=== PATIENT | female | born 1990 | race African-American/Black ===

== ENCOUNTER 2018-11-17 03:23 | Inpatient (IN) | payer OTHER ==
[2018-11-17] MEDS ORDERED: Lactated Ringers 1000 ML Bag* 1,000 ML IV ONE ×2 (03:56→04:40)
[2018-11-17] MEDS ORDERED: Buffered Lidocaine 1% SYRIN* 1 ML/SYRINGE INTRADERM ONE (03:56)
[2018-11-17] MEDS ORDERED: Lactated Ringers 1000 ML Bag* 1,000 ML IV SCH ×3 (04:00→06:00)
[2018-11-17] MEDS ORDERED: OBEPIDURAL* 250 ML EPIDURAL ONE (04:06)
--- NOTE | 2018-11-17 04:09 | HP ---
General Information - Reason for Visit labor check - General Information Maternal Age: 28 Grav: 3 Para: 1 SAB: 0 IEA: 1 Estimated Due Date: 11/24/18 Determined By: Early Ultrasound Gestational Age in Weeks/Days: 39w 0 d Maternal Blood Type and Rh: A Positive - Results this Serology/RPR Result: Non-Reactive Rubella Result: Immune HBsAg Result: Negative HIV Result: Negative GBS Culture Result: Negative Past Medical History Delivery History: Hx Uncomplicated Vaginal Delivery Past Medical History Comment: kidney stones Depression/anxiety--on Gabapentin Pertinent Past Surgical History: None Pertinent Family History: See Records - Antepartal Records Antepartal Records: Reviewed, Complicated by: - marijuana use Review of Systems Constitutional: Uncomfortable CV Complaint: No Respiratory: Shortness of Breath: No Gastrointestinal: No Nausea/Vomiting Musculoskeletal: Contractions Neurological: No Headache Movement: Normal Exam Allergies/Adverse Reactions: Allergies MS Acetaminophen [From Tylenol] Allergy (Verified 11/17/18 03:40) GI Upset MS Ibuprofen [Ibuprofen] Allergy (Verified 11/17/18 03:40) GI Upset - Measurements Height: 5 ft 4 in Weight: 153 lb Weight in lbs: 153.387644 Body Mass Index (BMI): 26.2 Pre- Weight: 120 lb Weight Gained This : 33 lbs and 0 ozs - Exam Breast: - - soft, no masses Extremities: No Edema Heart: Normal Rhythm/Heart Sounds HEENT: No Significant Findings Lungs: Clear Bilaterally Reflexes: - - unable to elicit Thyroid: No Thyromegaly - Abdominal Exam Abdomen Exam: Non-Tender - Ultrasound/Biophysical Profile Ultrasound Status: Bedside Exam - vertex Targeted Exam Findings Estimated Weight: 6 lbs Cervical Exam: 6cm Effacement: 80% Station: -2 Presenting Part: Vertex Membrane Status: Intact EFM Findings - External Monitor Findings Baseline Heart Rate: 135 External Monitor Findings: Accelerations Present, No Pattern of Variable or Late Decelerations, Variability Moderate, Baseline Stable External Monitor Findings Comment: category 1 Contractions: Regular, Strong, 45-90 Seconds Contraction Frequency: every 2-3 min Assessment/Plan - Assessment at 39 wks in active labor - Obstetrical Risk Factors Obstetrical Risk Factors: Tobacco Use, Psychosocial Issues - Plan Plan: Admit - Anticipate Vaginal Delivery Plan Comment: wants epidural - Date/Time of Admission Date of Admission: 11/17/18 Time of Admission: 03:30
[2018-11-17] MEDS ORDERED: Bupivacaine 0.25% SDV PF* 10 ML VIAL INJ ONE (04:12)
[2018-11-17 04:22] LABS: ABS Basophils 0 10^3/ul (0-0.2); ABS Eosinophils 0.1 10^3/ul (0-0.6); ABS Lymphocytes 1.9 10^3/ul (1.0-4.8); ABS Monocytes 1.4 10^3/ul (0-0.8); ABS Neutrophils 10.9 10^3/ul (1.5-7.7); ABS Nucleated RBC 0 10^3/ul; Eosinophil % 0.9 %; Hematocrit 39 % (33-41); Hemoglobin 12.8 g/dL (12.0-16.0); Lymphocyte % 13.5 %; Mean Corpuscular HGB Conc 33 g/dL (31-36); Mean Corpuscular Hemoglobin 31 pg (27-31); Mean Corpuscular Volume 93 fL (80-97); Nucleated Red Blood Cells % 0; Platelet Count 201 10^3/uL (150-450); Red Blood Count 4.17 10^6 /uL (3.70-4.87); Red Cell Distribution Width 15 % (10.5-15); White Blood Count 14.4 10^3/uL (3.5-10.8)
[2018-11-17] MEDS ORDERED: Sodium Citrate/Citric Acid* 15 ML UDC PO PRN (04:40)
[2018-11-17] MEDS ORDERED: Phenylephrine 40 MCG/ML SYRINGE IV PUSH PRN (04:40)
[2018-11-17] MEDS ORDERED: Famotidine TAB* 20 MG PO PRN (04:40)
[2018-11-17] MEDS ORDERED: EPHEDrine (Pressors)* 50 MG/ML VIAL IV PUSH PRN (04:40)
[2018-11-17] MEDS ORDERED: OBEPIDURAL* 250 ML EPIDURAL SCH (05:00)
--- NOTE | 2018-11-17 05:30 | PN ---
Progress Note - Progress Note Date of Service: 11/17/18 Note: comfortable after epidural SROM, mec stained fluid Early decels to 90, good recovery 9cm, 90,-1
[2018-11-17] MEDS ORDERED: Oxytocin in LR* 20 UNITS/1,000 ML BAG IVPB ONE (05:40)
[2018-11-17] MEDS ORDERED: Witch Hazel PAD* JAR TOPICAL PRN (05:59)
[2018-11-17] MEDS ORDERED: Oxytocin in LR* 20 UNITS/1,000 ML BAG IVPB SCH (06:00)
[2018-11-17 06:10] LABS: Barbiturates Urine Screen None Detected (None Detect); Benzodiazepine Urine Screen None Detected (None Detect); Urine Cannabinoids Screen None Detected (None Detect)
--- NOTE | 2018-11-17 06:10 | PROCNOTE ---
[facility] OB: Delivery Note - Delivery A Date of : 11/17/18 Time of : 05:36 [place] Sex: Female Score 1 Minute: 9 Score 5 Minutes: 9 Gestational Age in Weeks and Days at Delivery: 39 Weeks and 0 Days Delivery Method: Spontaneous Vaginal Labor: Spontaneous Did Patient attempt ?: N/A, No Previous Amniotic Fluid: Meconium Estimated Blood Loss: 200 Anesthesia/Analgesia: CEI for Labor Anesthesia Comment: Dr. Wilkins Delivered By: Lima Nunes - Nursery Level of Nursery: Regular/Bedside - Perineum Perineal Injury: None/Intact - Events Delivery Events of Note: Pitocin Only After Delivery - Additional Delivery Notes Additional Delivery Notes: SVB LFC, OA, over intact perineum after 4 minute second stage. Infant pink with stimulation, bulb suctioning. Placenta [place]. FF with massage, IV with pitocin running. EBL 200cc. Mother and baby in good condition
[2018-11-17] MEDS: Docusate CAP* 100 MG PO SCH ×3 (09:00→21:17)
[2018-11-17] MEDS: Gabapentin CAP(*) 100 MG PO SCH ×2 (10:00→21:17)
[2018-11-17] MEDS ORDERED: Nicotine Inhaler* 10 MG AMP INH PRN (10:20)
[2018-11-17] MEDS: Acetaminophen TAB* 325 MG PO PRN (19:03)
[2018-11-17] MEDS ORDERED: Mouth Piece, Nicotine* 1 EACH CARTRIDGE ONE (19:43)
[2018-11-18 06:44] LABS: Hematocrit 37 % (33-41); Hemoglobin 12.4 g/dL (12.0-16.0); Mean Corpuscular HGB Conc 34 g/dL (31-36); Mean Corpuscular Hemoglobin 31 pg (27-31); Mean Corpuscular Volume 93 fL (80-97); Mean Platelet Volume 9.3 fL (7.4-10.4); Platelet Count 187 10^3/uL (150-450); Red Blood Count 3.99 10^6 /uL (3.70-4.87); Red Cell Distribution Width 15 % (10.5-15); White Blood Count 10.3 10^3/uL (3.5-10.8)
[2018-11-18 08:44] VITALS: BP 134/74
[2018-11-18] MEDS ORDERED: Ferrous Gluconate TAB* 324 MG TAB PO SCH (09:00)
[2018-11-18] MEDS: Acetaminophen TAB* 325 MG PO PRN (09:22)
[2018-11-18] MEDS: Docusate CAP* 100 MG PO SCH (09:22)
[2018-11-18] MEDS: Gabapentin CAP(*) 100 MG PO SCH (09:22)
[2018-11-18] MEDS ORDERED: Phenylephrine 40 MCG/ML SYRINGE ONE (14:18)
== END 2018-11-18 13:00 | disposition home or self-care (01) | DRG 560 ==
LOC: MCHOBOUT 03:23 → MCHOB 03:31
PROVIDERS: ADMIT Midwife; ATTEND Midwife
PROC: 10E0XZZ Delivery of Products of Conception, External Approach (ICD-10-PCS; principal; 2018-11-17)
PROC: 4A1HXCZ Monitoring of Products of Conception, Cardiac Rate, External Approach (ICD-10-PCS; 2018-11-17)
DX: O99.334 Smoking (tobacco) complicating childbirth (principal); Z37.0 Single live birth; O99.344 Other mental disorders complicating childbirth; F32.9 Major depressive disorder, single episode, unspecified; F41.9 Anxiety disorder, unspecified; O76 Abnormality in fetal heart rate and rhythm complicating labor and delivery; O77.0 Labor and delivery complicated by meconium in amniotic fluid; Z3A.39 39 weeks gestation of pregnancy; Z88.5 Allergy status to narcotic agent
CPT/HCPCS: 36415; 80307; 85025; 85027; 86850; 86900; 86901; A9270-GY; J3490

== ENCOUNTER 2018-12-01 23:29 | Emergency (ER) | payer OTHER ==
[2018-12-02 01:40] LABS: ABS Basophils 0 10^3/ul (0-0.2); ABS Eosinophils 0.2 10^3/ul (0-0.6); ABS Lymphocytes 2.8 10^3/ul (1.0-4.8); ABS Monocytes 0.5 10^3/ul (0-0.8); ABS Neutrophils 3.2 10^3/ul (1.5-7.7); ABS Nucleated RBC 0 10^3/ul; Eosinophil % 3.5 %; Hematocrit 43 % (33-41); Hemoglobin 14.3 g/dL (12.0-16.0); Lymphocyte % 40.9 %; Mean Corpuscular HGB Conc 33 g/dL (31-36); Mean Corpuscular Hemoglobin 31 pg (27-31); Mean Corpuscular Volume 92 fL (80-97); Nucleated Red Blood Cells % 0.1; Platelet Count 293 10^3/uL (150-450); Red Blood Count 4.65 10^6 /uL (3.70-4.87); Red Cell Distribution Width 15 % (10.5-15); White Blood Count 6.8 10^3/uL (3.5-10.8)
[2018-12-02 01:57] LABS: Albumin 3.9 g/dL (3.2-5.2); Albumin/Globulin Ratio 1.3 (1-3); BUN/Creatinine Ratio 21.3 (8-20); EGFR African American 102.6 (>60); EGFR Non-African American 84.8 (>60); Globulin 3.1 g/dL (2-4); Potassium 3.8 mmol/L (3.5-5.0); Total Bilirubin 0.3 mg/dL (0.2-1.0)
--- NOTE | 2018-12-02 02:59 | ED ---
Upper Extremity Pain - HPI Summary HPI Summary: The patient is a 28 y/o F presenting to [facility] with a chief complaint of sharp sudden onset numbness and tingling in the bilateral fingertips and hands that radiates to the arms starting two days after giving on November 17. The pain , which is rated 8/10 in severity, is aggravated by putting pressure on the hands like in prayer position. The pain is also worse in the morning rather than throughout the day. She denies CP. Vaginal delivery of baby at 39 weeks was normal without complications other than some abnormal iron levels. - History of Current Complaint Chief Complaint: EDHypertension Stated Complaint: "LEFT ARM PAIN/HEADACHE" Time Seen by Provider: 12/02/18 02:52 Hx Obtained From: Patient Hx Last Menstrual Period: 5 weeks ago Mechanism Of Injury: Unknown Onset/Duration: Started Days Ago - about two weeks, Still Present Timing: Lasting Days Severity Initially: Moderate Severity Currently: Moderate Pain Location: Other: - pain, numbness, and tingling starts in the fingertips of both hands, moves into the palms, and up both arms Character: Sharp Aggravating Factor(s): Other - pressure on hands Alleviating Factor(s): Nothing Associated Signs & Symptoms: Positive: Numbness/Tingling - in hands and arms. Negative: Chest Pain - Allergies/Home Medications Allergies/Adverse Reactions: Allergies Allergy/AdvReac Type Severity Reaction Status Date / Time acetaminophen [From Tylenol] Allergy Vomiting Verified 12/02/18 03:25 PMH/Surg Hx/FS Hx/Imm Hx Endocrine/Hematology History: Denies: Hx Anticoagulant Therapy, Hx Diabetes, Hx Thyroid Disease Cardiovascular History: Denies: Hx Hypertension Respiratory History: Denies: Hx Asthma, Hx Chronic Obstructive Pulmonary Disease (COPD) GI History: Reports: Hx Ulcer Psychiatric History: Reports: Hx Anxiety, Hx Depression, Hx Community Mental Health Tx - Receives MH T[facility] through [facility], Hx Substance Abuse Denies: Hx Attention Deficit Hyperactivity Disorder, Hx Eating Disorder, Hx Panic Disorder, Hx Post Traumatic Stress Disorder, Hx Schizophrenia, Hx Bipolar Disorder, Hx Suicide Attempt, Hx of Violent Episodes Against Others - Surgical History Surgery Procedure, Year, and Place: none Infectious Disease History: No Infectious Disease History: Denies: Hx Clostridium Difficile, Hx Hepatitis, Hx Human Immunodeficiency Virus (HIV), Hx of Known/Suspected MRSA, Hx Shingles, Hx Tuberculosis, Hx Known/ Suspected VRE, Hx Known/Suspected VRSA, History Other Infectious Disease, Traveled Outside the [place] in Last 30 Days - Family History Known Family History: Positive: Hypertension - Social History Alcohol Use: Occasionally Hx Substance Use: No Substance Use Type: Reports: Cocaine, Marijuana Substance Use Comment - Amount & Last Used: Pt reports using marijuana 2 weeks ago;reports being drugged with cocaine Hx Tobacco Use: No Smoking Status (MU): Light Every Day Tobacco Smoker Type: Cigarettes Review of Systems Positive: other - NEGATIVE: abnormal bleeding Positive: Other - NEGATIVE: neck pain Positive: Numbness - and tingling in bilateral hands and radiating into the arms All Other Systems Reviewed And Are Negative: Yes Physical Exam - Summary Physical Exam Summary: Appearance: Well-appearing, Well-nourished, lying in bed comfortable Skin: Warm, dry, no obvious rash Eyes: sclera anicteric, no conjunctival pallor ENT: mucous membranes moist Neck: deferred Respiratory: No signs of respiratory distress Cardiovascular: Appears well perfused, pulses are nml Abdomen: deferred Musculoskeletal: Moving all 4 extremities without obvious discomfort except as noted, symptoms are reproduced by hyperextending the wrists, No muscular atrophy , No sensory deficits, No motor deficits in hand or writs Neurological: Awake and alert, mentation is normal, speech is fluent and appropriate Psychiatric: affect is normal, does not appear anxious or depressed Triage Information Reviewed: Yes Vital Signs On Initial Exam: Initial Vitals Temp Pulse Resp BP Pulse Ox 98.8 F 65 18 160/106 100 12/01/18 23:32 12/01/18 23:32 12/01/18 23:32 12/01/18 23:32 12/01/18 23:32 Vital Signs Reviewed: Yes Diagnostics - Vital Signs Vital Signs Temp Pulse Resp BP Pulse Ox 12/01/18 23:32 98.8 F 65 18 160/106 100 - Laboratory Lab Results: Lab Results 12/02/18 12/02/18 12/02/18 Range/Units 01:34 01:34 01:34 WBC 6.8 (3.5-10.8) 10^3/uL RBC 4.65 (3.70-4.87) 10^6 /uL Hgb 14.3 (12.0-16.0) g/dL Hct 43 H (33-41) % MCV 92 (80-97) fL MCH 31 (27-31) pg MCHC 33 (31-36) g/dL RDW 15 (10.5-15) % Plt Count 293 (150-450) 10^3/uL MPV 8.0 (7.4-10.4) fL Neut % (Auto) 47.3 % Lymph % (Auto) 40.9 % Porter % (Auto) 8.1 % Eos % (Auto) 3.5 % Baso % (Auto) 0.2 % Absolute Neuts (auto) 3.2 (1.5-7.7) 10^3/ul Absolute Lymphs (auto) 2.8 (1.0-4.8) 10^3/ul Absolute Monos (auto) 0.5 (0-0.8) 10^3/ul Absolute Eos (auto) 0.2 (0-0.6) 10^3/ul Absolute Basos (auto) 0 (0-0.2) 10^3/ul Absolute Nucleated RBC 0 10^3/ul Nucleated RBC % 0.1 Sodium 136 (135-145) mmol/L Potassium 3.8 (3.5-5.0) mmol/L Chloride 105 (101-111) mmol/L Carbon Dioxide 26 (22-32) mmol/L Anion Gap 5 (2-11) mmol/L BUN 17 (6-24) mg/dL Creatinine 0.80 (0.51-0.95) mg/dL Est GFR ( Amer) 102.6 (>60) Est GFR (Non-Af Amer) 84.8 (>60) BUN/Creatinine Ratio 21.3 H (8-20) Glucose 115 H (70-100) mg/dL Lactic Acid 1.2 (0.5-2.0) mmol/L Calcium 9.0 (8.6-10.3) mg/dL Total Bilirubin 0.30 (0.2-1.0) mg/dL AST 17 (13-39) U/L ALT 14 (7-52) U/L Alkaline Phosphatase 76 (34-104) U/L Total Protein 7.0 (6.4-8.9) g/dL Albumin 3.9 (3.2-5.2) g/dL Globulin 3.1 (2-4) g/dL Albumin/Globulin Ratio 1.3 (1-3) Result Diagrams: 12/02/18 01:34 12/02/18 01:34 Lab Statement: Any lab studies that have been ordered have been reviewed, and results considered in the medical decision making process. - EKG 2346 Cardiac Rate: NL - 53 BPM EKG Rhythm: Sinus Rhythm Summary of EKG Findings: NSR at 61 BPM, P waves, QRS complex, and T waves are within normal limits, T waves and intervals are normal, no ischemic changes. This is a normal EKG. Course/Dx - Course Course Of Treatment: The patient is a 28 y/o F with a chief complaint of sharp sudden onset numbness and tingling in the bilateral fingertips and hands that radiates to the arms starting two days after giving on November 17. Normal delivery of baby with only complication of iron levels. Upon physical exam, symptoms are reproduced by hyperextending the wrists, there is no muscular atrophy, no sensory deficits, no motor deficits in the hands or wrists. Blood work reveals elevated hct, BUN/Creatinine ratio, and glucose. EKG reveals NSR. She is diagnosed with paresthesia and Carpal Tunnel. She will be discharged home with instructions for using wrist splints and follow up with PCP as needed. We discussed her condition as related to her recent . She agrees with this plan and understands the need for return to the ED for any new or worsening symptoms. - Diagnoses Provider Diagnoses: Carpal tunnel syndrome, Paresthesias Discharge - Sign-Out/Discharge Documenting (check all that apply): Patient Departure - Patient will be discharged home. Patient Received Moderate/Deep Sedation with Procedure: No - Discharge Plan Condition: Good Disposition: HOME Patient Education Materials: Paresthesia (ED) Referrals: Merritt Gandhi MD [Medical Doctor] - Additional Instructions: Use the wrist splints at night, this should help with your symptoms. If the problem does not seem to be resolving on its own over the next few weeks, or it' s getting worse, make an appt with the orthopedic surgeon. There are other treatments for this condition if basic conservative measures fail. - Billing Disposition and Condition Condition: GOOD Disposition: Home - Attestation Statements Document Initiated by Scribe: Yes Documenting Scribe: Clover Argueta Provider For Whom Scribe is Documenting (Include Credential): Dr. Wilmer Vasquez MD Scribe Attestation: IClover, scribed for Dr. Wilmer Vasquez MD on 12/03/18 at 0535. Scribe Documentation Reviewed: Yes Provider Attestation: The documentation as recorded by the Clover kong accurately reflects the service I personally performed and the decisions made by me, Dr. Wilmer Vasquez MD Status of Scrbharathi Document: Viewed
[2018-12-02 03:18] VITALS: BP 135/92
== END 2018-12-02 03:17 | disposition home or self-care (01) ==
LOC: ED 23:29
DX: G56.02 Carpal tunnel syndrome, left upper limb (principal); R20.0 Anesthesia of skin; F17.210 Nicotine dependence, cigarettes, uncomplicated; F41.9 Anxiety disorder, unspecified
CPT/HCPCS: 36415; 80053; 83605; 85025; 85379; 93005; 99283

== ENCOUNTER 2023-05-23 15:23 | Inpatient (IN) ==
[2023-05-23] MEDS ORDERED: Lactated Ringers 1000 ml BAG 1,000 ML IV ONE ×3 (15:33→17:25)
[2023-05-23 16:16] LABS: ABS Lymphocytes 0.8 10^3/uL (1.0-4.8); ABS Neutrophils 8.8 10^3/uL (1.5-7.6); ABS Nucleated RBC 0.01 10^3/ul; Hematocrit 44.4 % (35-45); Hemoglobin 14.9 g/dL (11.5-14.3); Lymphocyte % 7.3 %; Mean Corpuscular Hemoglobin 31.2 pg (27-33); Mean Corpuscular Hgb Conc 33.6 g/dL (31-36); Mean Corpuscular Volume 92.9 fL (80-97); Mean Platelet Volume 7.5 fL (7.5-11.2); Nucleated Red Blood Cells % 0.1 /100 WBC (0.0-0.4); Platelet Count 263 10^3/uL (150-450); Red Blood Count 4.77 10^6/uL (3.63-4.92); Red Cell Distribution Width 14.2 % (12-17); White Blood Count 10.6 10^3/uL (3.8-11.8)
[2023-05-23 16:17] LABS: Urine Appearance Cloudy; Urine Bilirubin Negative (Negative); Urine Blood 3+ (Negative); Urine Color Yellow; Urine Glucose 1+(50 mg/dL) (Negative); Urine Ketones Negative (Negative); Urine Nitrite Negative (Negative); Urine Protein 2+(100 mg/dL) (Negative); Urine Specific Gravity 1.013 (1.002-1.030); Urine Urobilinogen Negative (Negative)
[2023-05-23 16:19] LABS: Urine Bacteria Absent (Absent); Urine Red Blood Cell 1+(3-5/hpf) (Absent); Urine Squamous Epithelial Cell Present (Absent); Urine White Blood Cell Trace(0-5/hpf) (Absent)
[2023-05-23 16:27] LABS: INR 1.15 (0.83-1.13)
[2023-05-23 16:37] LABS: Albumin 4.8 g/dL (3.2-5.2); Anion Gap 9 mmol/L (2-16); CO2 Carbon Dioxide 26 mmol/L (22-32); Calcium 8.8 mg/dL (8.6-10.3); Chloride 101 mmol/L (101-111); Magnesium 2.3 mg/dL (1.9-2.7); Potassium 5.4 mmol/L (3.5-5.0); Sodium 136 mmol/L (135-145)
[2023-05-23 16:43] LABS: ALT 77 U/L (7-52); AST 155 U/L (13-39); Albumin/Globulin Ratio 1.6 (1-3); Alkaline Phosphatase 61 U/L (35-149); Blood Urea Nitrogen 28 mg/dL (6-24); Creatinine, Serum 1.39 mg/dL (0.51-0.95); Glucose 115 mg/dL (70-100); Total Protein 7.8 g/dL (6.4-8.9); eGFR CKD-EPI 51.4 (>60)
[2023-05-23 16:47] LABS: HCG Pregnancy < 0.60 mIU/mL; High Sens Troponin Baseline 57 pg/mL (<15)
[2023-05-23 16:51] LABS: Acetaminophen < 15 mcg/mL; Alcohol, S < 13 mg/dL (<13); Salicylate < 2.50 mg/dL (<30)
[2023-05-23] MEDS ORDERED: Iodixanol (CONTRAST) 320 MG/ML 100 ML SDV IV ONE (16:55)
[2023-05-23 17:02] LABS: Creatine Kinase 14107 U/L (10-223)
[2023-05-23 17:19] LABS: Urine Benzodiazepine Screen None Detected (None Detect); Urine Cannabinoids Screen Presumptive Positive (None Detect); Urine Opiates Screen None Detected (None Detect)
[2023-05-23 17:21] LABS: Venous Bicarbonate HCO3 22.9 mmol/L (24-28)
[2023-05-23 17:44] LABS: High Sensitivity Troponin 1 Hr 79 pg/mL (<15)
[2023-05-23] MEDS ORDERED: Lactated Ringers 1000 ml BAG 1,000 ML IV SCH (20:00)
[2023-05-23] MEDS ORDERED: Ondansetron 4 mg VIAL 2 MG/ML 2 ml VIAL IV PRN (21:05)
[2023-05-23] MEDS: Enoxaparin 40 MG/0.4 ML SYR SUBCUT SCH (21:22)
[2023-05-23 21:31] LABS: Urine Appearance Clear; Urine Bilirubin Negative (Negative); Urine Blood 3+ (Negative); Urine Color Yellow; Urine Glucose 1+(50 mg/dL) (Negative); Urine Ketones Negative (Negative); Urine Nitrite Negative (Negative); Urine Protein 2+(100 mg/dL) (Negative); Urine Specific Gravity 1.013 (1.002-1.030); Urine Urobilinogen Negative (Negative)
[2023-05-23 21:38] LABS: Urine Bacteria Absent (Absent); Urine Red Blood Cell Trace(0-2/hpf) (Absent); Urine Squamous Epithelial Cell Present (Absent); Urine White Blood Cell Trace(0-5/hpf) (Absent)
[2023-05-23 22:01] LABS: Urine Benzodiazepine Screen None Detected (None Detect); Urine Buprenorphine Screen None Detected (None Detect); Urine Cannabinoids Screen Presumptive Positive (None Detect); Urine Fentanyl Screen Presumptive Positive (None Detect); Urine Hydrocodone Screen None Detected (None Detect); Urine Opiates Screen None Detected (None Detect)
[2023-05-24] MEDS: Acetaminophen IV 1 GM/100ML 1,000 MG/100 ML BAG IV PRN ×2 (02:30→13:51)
[2023-05-24] MEDS: Neomycin/Polym/Bacit TOP OINT 15 GM TOPICAL SCH ×3 (02:31→21:45)
[2023-05-24 05:11] LABS: Hematocrit 42.9 % (35-45); Hemoglobin 14.7 g/dL (11.5-14.3); Mean Corpuscular Hemoglobin 30.8 pg (27-33); Mean Corpuscular Hgb Conc 34.2 g/dL (31-36); Mean Corpuscular Volume 90.1 fL (80-97); Mean Platelet Volume 7.4 fL (7.5-11.2); Platelet Count 254 10^3/uL (150-450); Red Blood Count 4.76 10^6/uL (3.63-4.92); Red Cell Distribution Width 13.9 % (12-17); White Blood Count 9.7 10^3/uL (3.8-11.8)
[2023-05-24 05:28] LABS: Calcium 8.4 mg/dL (8.6-10.3); Creatinine, Serum 0.81 mg/dL (0.51-0.95); Magnesium 1.9 mg/dL (1.9-2.7); Potassium 4.2 mmol/L (3.5-5.0); eGFR CKD-EPI 98.2 (>60)
[2023-05-24] MEDS: Lactated Ringers 1000 ml BAG 1,000 ML IV SCH (08:07)
[2023-05-24] MEDS ORDERED: Morphine 2 MG/ML SYRINGE IV ONE (08:32)
[2023-05-24] MEDS ORDERED: Bacitracin OINTMENT TUBE TOPICAL SCH (10:30)
[2023-05-24] MEDS ORDERED: Vitamins A & D OINT TUBE TOPICAL SCH (10:30)
[2023-05-24] MEDS ORDERED: Gadoteridol (CONTRAST) 279.3 MG/ML 10 ML IV ONE (13:08)
[2023-05-24 14:40] LABS: C Reactive Protein 91.01 mg/L (<8.01)
[2023-05-24] MEDS ORDERED: Morphine 4 MG/ML VIAL (1 ml) ONE (16:10)
[2023-05-24] MEDS ORDERED: Iodixanol (CONTRAST) 320 MG/ML 100 ML SDV IV ONE (16:36)
[2023-05-24] MEDS: Enoxaparin 40 MG/0.4 ML SYR SUBCUT SCH (21:44)
[2023-05-25] MEDS ORDERED: HYDROmorphone 1 MG/1 ML SYRINGE IV SLOW PU ONE (04:04)
[2023-05-25] MEDS ORDERED: HYDROmorphone 1 MG/1 ML SYRINGE ONE (04:06)
[2023-05-25 05:30] LABS: Hematocrit 41.8 % (35-45); Hemoglobin 14.3 g/dL (11.5-14.3); Mean Corpuscular Hemoglobin 30.9 pg (27-33); Mean Corpuscular Hgb Conc 34.3 g/dL (31-36); Mean Corpuscular Volume 90.2 fL (80-97); Mean Platelet Volume 7.5 fL (7.5-11.2); Platelet Count 235 10^3/uL (150-450); Red Blood Count 4.64 10^6/uL (3.63-4.92); Red Cell Distribution Width 13.7 % (12-17); White Blood Count 7.7 10^3/uL (3.8-11.8)
[2023-05-25 05:44] LABS: Calcium 8.5 mg/dL (8.6-10.3); Creatinine, Serum 0.61 mg/dL (0.51-0.95); Potassium 4.2 mmol/L (3.5-5.0)
[2023-05-25 06:49] LABS: Magnesium 1.8 mg/dL (1.9-2.7)
[2023-05-25] MEDS ORDERED: Magnesium Sulfate IV 3 GM in NS 0.9% 100 ml BAG 100 ML IVPB ONE (07:40)
[2023-05-25] MEDS: Lactated Ringers 1000 ml BAG 1,000 ML IV SCH (08:21)
[2023-05-25] MEDS ORDERED: HYDROmorphone 0.5 MG/0.5 ML SYRINGE IV SLOW PU PRN (09:08)
[2023-05-25] MEDS ORDERED: Magnesium Hydroxide LIQ 30 ML UDC PO PRN (09:11)
[2023-05-25] MEDS ORDERED: Senna TAB 8.6 mg TAB PO PRN (09:11)
[2023-05-25] MEDS: Neomycin/Polym/Bacit TOP OINT 15 GM TOPICAL SCH ×2 (15:29→21:37)
[2023-05-25] MEDS: HYDROmorphone 0.5 MG/0.5 ML SYRINGE IV SLOW PU PRN ×2 (15:29→19:42)
[2023-05-25] MEDS: Enoxaparin 40 MG/0.4 ML SYR SUBCUT SCH (19:44)
[2023-05-26] MEDS: HYDROmorphone 0.5 MG/0.5 ML SYRINGE IV SLOW PU PRN ×2 (00:01→10:55)
[2023-05-26 05:58] LABS: Hematocrit 39.4 % (35-45); Hemoglobin 13.5 g/dL (11.5-14.3); Mean Corpuscular Hemoglobin 30.6 pg (27-33); Mean Corpuscular Hgb Conc 34.1 g/dL (31-36); Mean Corpuscular Volume 89.8 fL (80-97); Mean Platelet Volume 7.4 fL (7.5-11.2); Platelet Count 230 10^3/uL (150-450); Red Blood Count 4.39 10^6/uL (3.63-4.92); White Blood Count 7.7 10^3/uL (3.8-11.8)
[2023-05-26 06:13] LABS: Creatinine, Serum 0.66 mg/dL (0.51-0.95); eGFR CKD-EPI 118.7 (>60)
[2023-05-26 07:03] LABS: Magnesium 1.7 mg/dL (1.9-2.7)
[2023-05-26] MEDS: Neomycin/Polym/Bacit TOP OINT 15 GM TOPICAL SCH (07:57)
[2023-05-26] MEDS ORDERED: Magnesium Sulfate IV 3 GM in NS 0.9% 100 ml BAG 100 ML IVPB ONE (15:00)
[2023-05-26 19:00] VITALS: BP 136/79
== END 2023-05-26 20:00 | disposition left against medical advice (07) | DRG 351 ==
LOC: ED 15:23 → EDHOLD 21:05 → ICU 05-24 09:27 → MEDTELE 05-25 17:52
PROVIDERS: ADMIT Student in an Organized Health Care Education/Training Program; ATTEND Student in an Organized Health Care Education/Training Program